=== PATIENT | male | born 1995 | race Caucasian/White ===

== ENCOUNTER 2019-07-15 22:23 | Emergency (ER) | payer OTHER ==
[~2019-07-15] VITALS: Ht 185.4 cm; Wt 88.6 kg
[2019-07-15 22:33] VITALS: TEMP 98.6
[2019-07-15 23:01] LABS: BASO # 0.1 (0.0-0.2); BASO % 0.9 % (0.0-2.0); EOS # 0.1 (0.0-0.7); EOS % 0.9 % (0-4.0); GRAN # 2.9 (1.4-6.5); GRAN % 54.1 % (42.2-75.2); HEMATOCRIT 41.9 % (42.0-52.0); HEMOGLOBIN 14.6 g/dl (13.5-18.0); LYMPH % 36.6 % (20.0-51.0); MEAN CELL VOLUME 87 fl (80.0-100.0); MEAN CORPUSCULAR HEMOGLOBIN 30 pg (27.0-31.0); MEAN CORPUSCULAR HGB CONC 35 g/dl (33.0-37.0); MONO # 0.4 (0.1-0.6); MONO % 7.1 % (1.7-9.3); PLATELET COUNT 243 K/mm3 (130-400); RED BLOOD COUNT 4.81 M/mm3 (4.20-5.60); REDCELL DISTRIBUTION WIDTH-CV 12.4 % (11.5-14.5)
[2019-07-15 23:19] LABS: ALBUMIN 4.5 gm/dL (3.5-5.0); BILIRUBIN,TOTAL 0.2 mg/dL (0.0-1.0); CREATININE, serum 0.94 (0.66-1.25); POTASSIUM 3.7 mmol/L (3.4-5.0); TOTAL PROTEIN 7.3 gm/dL (6.4-8.2)
[2019-07-16 00:45] VITALS: BP 150/105; PULSE 80
== END 2019-07-16 00:42 | disposition short-term general hospital (02) ==
LOC: COL.ER 22:23
PROVIDERS: Emergency Medicine
DX: S82.202B Unspecified fracture of shaft of left tibia, initial encounter for open fracture type I or II (principal); S82.402B Unspecified fracture of shaft of left fibula, initial encounter for open fracture type I or II; Z23 Encounter for immunization; F17.210 Nicotine dependence, cigarettes, uncomplicated; X50.1XXA Overexertion from prolonged static or awkward postures, initial encounter; Y92.830 Public park as the place of occurrence of the external cause
CPT/HCPCS: J0690; J1170; J1956; J7030

== ENCOUNTER 2019-07-21 00:21 | Emergency (ER) | payer OTHER ==
[~2019-07-21] VITALS: Ht 185.4 cm; Wt 88.6 kg
[2019-07-21 00:21] VITALS: TEMP 99.2
[2019-07-21 02:01] VITALS: BP 131/73; PULSE 80
== END 2019-07-21 02:04 | disposition home or self-care (01) ==
LOC: COL.ER 00:21
DX: G89.18 Other acute postprocedural pain (principal); M79.675 Pain in left toe(s); Z87.81 Personal history of (healed) traumatic fracture; W19.XXXA Unspecified fall, initial encounter; Y92.830 Public park as the place of occurrence of the external cause